=== PATIENT | male | born 1960 | race Caucasian/White ===

== ENCOUNTER 2023-05-21 07:00 | Outpatient (CLI) | payer BC, MEDICARE ==
--- NOTE | 2023-05-21 16:02 | XRAY Report ---
PROCEDURE: Foot 3+V RT INDICATIONS: RIGHT FOOT MUSCLE STRAIN TECHNIQUE: 3 views of the foot were acquired. COMPARISON: None. FINDINGS: Bones: No fractures or dislocations. No suspicious bony lesions. Soft tissues: No suspicious soft tissue calcifications or masses. IMPRESSION: No acute bony abnormality. Reviewed by: Chris Meneses MD on 05/21/2023 4:01 PM [facility] Approved by: Chris Meneses MD on 05/21/2023 4:01 PM [facility] Station ID: [id number]
== END 2023-05-21 23:59 | disposition home or self-care (01) ==
LOC: DI.S 07:00
PROVIDERS: ATTEND Physician Assistant Medical
DX: S96.211A Strain of intrinsic muscle and tendon at ankle and foot level, right foot, initial encounter (principal)

== ENCOUNTER 2023-05-27 08:51 | Outpatient (CLI) | payer BC, MEDICARE ==
--- NOTE | 2023-05-28 08:07 | XRAY Report ---
PROCEDURE: Foot 3 View RT INDICATIONS: RIGHT FOOT PAIN TECHNIQUE: 3 views of the foot were acquired. COMPARISON: X-ray left foot, 05/21/2023. FINDINGS: Bones: No fractures or dislocations. No suspicious bony lesions. Mild osteoarthritic changes are pr esent in ankle and foot. Soft tissues: No suspicious soft tissue calcifications or masses. Severe atherosclerotic calcificati ons. IMPRESSION: 1. No acute bony abnormality. 2. Mild osteoarthritis. 3. Atherosclerosis. Reviewed by: Guillermina Wilson MD on 05/28/2023 8:05 AM PST Approved by: Guillermina Wilson MD on 05/28/2023 8:05 AM PST Station ID: [id number]
== END 2023-05-27 23:59 | disposition home or self-care (01) ==
LOC: DI.WOS 08:51
PROVIDERS: ATTEND Physician Assistant Surgical
DX: M19.071 Primary osteoarthritis, right ankle and foot (principal); I70.208 Unspecified atherosclerosis of native arteries of extremities, other extremity

== ENCOUNTER 2023-07-10 09:02 | Emergency (ER) | payer BC, MEDICARE ==
[2023-07-10 09:14] VITALS: BP 155/99; O2SAT 100
--- NOTE | 2023-07-10 09:17 | ED Physician Documentation ---
PD HPI URI - Stated complaint Stated Complaint: COUGH/CONGESTION - Chief complaint Chief Complaint: Resp - History obtained from History obtained from: Patient - History of Present Illness Timing - onset: How many days ago (4) Timing duration: Days (4) Timing details: Gradual onset, Still present Associated symptoms: Productive cough, Hemoptysis (mild wisps), Dyspnea. No: Fever, Ear pain, Nasal congestion Contributing factors: No: Sick contact, Travel, Immunocompromised, COPD / asthma Similar symptoms before: Has not had sx before Review of Systems Constitutional: denies: Fever, Chills, Myalgias Nose: denies: Rhinorrhea / runny nose, Congestion Throat: reports: Sore throat (from coughing) Respiratory: reports: Dyspnea, Cough. denies: Wheezing PD PAST MEDICAL HISTORY - Past Medical History Past Medical History: Yes Cardiovascular: Hypertension, High cholesterol - Past Surgical History Past Surgical History: Yes - Present Medications Home Medications: Ambulatory Orders Medication Instructions Recorded Confirmed Amoxicillin 500 mg PO TID #15 cap 07/10/23 Benzonatate [Tessalon] 100 mg PO TID PRN #20 cap 07/10/23 Dextroamphetamine/Amphetamine 20 mg PO DAILY 07/10/23 07/10/23 [Adderall 20 mg Tablet] Losartan [Cozaar] 50 mg PO DAILY 07/10/23 07/10/23 Pravastatin [Pravachol] 40 mg PO DAILY 07/10/23 07/10/23 dexAMETHasone [Decadron] 4 mg PO DAILY #5 tablet 07/10/23 guaiFENesin/CODEINE [Robitussin AC] 10 ml PO Q6H PRN #240 ml 07/10/23 - Allergies Allergies/Adverse Reactions: Allergies Allergy/AdvReac Type Severity Reaction Status Date / Time No Known Drug Allergies Allergy Verified 07/10/23 09:13 - Social History Does the pt smoke?: No Smoking Status: Never smoker PD ED PE NORMAL - Vitals Vital signs reviewed: Yes - General General: Alert and oriented X 3, No acute distress, Well developed/nourished - HEENT HEENT: Ears normal, Pharynx benign - Neck Neck: Supple, no meningeal sign, No adenopathy - Cardiac Cardiac: RRR, No murmur - Respiratory Respiratory: No respiratory distress, Clear bilaterally Results - Vitals Vitals: Vital Signs - 24 hr 07/10/23 09:12 Temperature 36.5 C Heart Rate 70 Respiratory 16 Rate Blood Pressure 155/99 H O2 Saturation 100 PD Medical Decision Making - ED course Complexity details: considered differential (pt without general URI symptoms and has had increasing throat/bronchial symptoms with productive cough. Consider viral vs bacterial. Lungs clear and sats are good, so not seeing need for CXR. Viral panel testing woul dnot preclude bacterial component, so did not get that after discussion with pt. ), d/w patient Departure - Departure Disposition: 01 Home, Self Care Clinical Impression: Acute bronchitis Qualifiers: Bronchitis organism: unspecified organism Qualified Code(s): J20.9 - Acute bronchitis, unspecified Condition: Stable Record reviewed to determine appropriate education?: Yes Instructions: ED Upper Resp Infec Abx Tx Prescriptions: Amoxicillin 500 mg PO TID #15 cap dexAMETHasone [Decadron] 4 mg PO DAILY #5 tablet guaiFENesin/CODEINE [Robitussin AC] 10 ml PO Q6H PRN #240 ml PRN Reason: Cough Benzonatate [Tessalon] 100 mg PO TID PRN #20 cap PRN Reason: Cough Comments: There are several viruses going around that will cause a lot of coughing but usually there is the combination of general viral symptoms as well with fever aches, congestion you,'s sore throat in addition to the cough and throat soreness from coughing. It does not sound like you have the general viral type "package" of symptoms but more isolated to the cough and bronchial. This raises the idea of nonviral or bacterial type causes. Comment treatment for the cough be at viral or bacterial, would be some anti- inflammatory as well as medication to help with irritation of the throat and bronchioles. I wrote for benzonatate/Tessalon and also some codeine cough syrups. This is the neck step up since you are her [id number] medicines were not helping. In addition with the consideration for bacterial cause, I would add amoxicillin antibiotic 3 times daily for 5 days. I sent new prescriptions to [facility] in [place]. I would anticipate improvement over the next few days and resolution by 3 to 5 days or so. Forms: PCP List Discharge Date/Time: 07/10/23 09:53
[2023-07-10] MEDS: dexAMETHasone 4 MG TABLET PO STA (09:47)
[2023-07-10] MEDS: AMOXICILLIN 250 MG CAPSULE PO STA (09:48)
[2023-07-10] MEDS: BENZONATATE 100 MG CAPSULE PO STA (09:48)
== END 2023-07-10 09:53 | disposition home or self-care (01) ==
LOC: ED 09:02
DX: J20.9 Acute bronchitis, unspecified (principal); I10 Essential (primary) hypertension
CPT/HCPCS: 99283; 99284; A9270; J8540

== ENCOUNTER 2023-07-14 10:20 | Emergency (ER) | payer BC, MEDICARE ==
--- NOTE | 2023-07-14 11:28 | XRAY Report ---
PROCEDURE: Chest 2V INDICATIONS: cough 1 week TECHNIQUE: 2 views of the chest were acquired. COMPARISON: None. FINDINGS: Surgical changes and devices: None. Lungs and pleura: No pleural effusions or pneumothorax. Lungs are clear. Mediastinum: Mediastinal contours appear normal. Heart size is normal. Bones and chest wall: No suspicious bony lesions. Overlying soft tissues appear unremarkable. IMPRESSION: No acute cardiopulmonary process. Reviewed by: Kelvin Mcgregor MD on 07/14/2023 11:27 AM PDT Approved by: Kelvin Mcgregor MD on 07/14/2023 11:27 AM PDT Station ID: [id number]
--- NOTE | 2023-07-14 11:48 | ED Physician Documentation ---
PD HPI URI - Stated complaint Stated Complaint: SOA/CONGESTION - Chief complaint Chief Complaint: Resp - History obtained from History obtained from: Patient - Additional information Additional information: Pt presenting for cough/congestion for 1 week. Seen 4 days ago - VSS, no testing. Given 5 day course of Amoxicillin, decadron, tessalon, and robitussin AC. Pt states doing a little better but still with some cough and last night felt he had a hard time breathing while laying down. Feels better now. HAs had bronchitis before. No fever. No CP. NO abdominal symptoms or leg swelling. Review of Systems Constitutional: denies: Fever Nose: reports: Congestion Cardiac: denies: Chest pain / pressure Respiratory: reports: Cough. denies: Dyspnea, Hemoptysis GI: denies: Abdominal Pain, Vomiting PD PAST MEDICAL HISTORY - Past Medical History Cardiovascular: Hypertension, High cholesterol - Past Surgical History Past Surgical History: Yes - Present Medications Home Medications: Ambulatory Orders Medication Instructions Recorded Confirmed Amoxicillin 500 mg PO TID #15 cap 07/10/23 07/14/23 Benzonatate [Tessalon] 100 mg PO TID PRN #20 cap 07/10/23 07/14/23 Dextroamphetamine/Amphetamine 20 mg PO DAILY 07/10/23 07/14/23 [Adderall 20 mg Tablet] Losartan [Cozaar] 50 mg PO DAILY 07/10/23 07/14/23 Pravastatin [Pravachol] 40 mg PO DAILY 07/10/23 07/14/23 dexAMETHasone [Decadron] 4 mg PO DAILY #5 tablet 07/10/23 07/14/23 guaiFENesin/CODEINE [Robitussin AC] 10 ml PO Q6H PRN #240 ml 07/10/23 07/14/23 Albuterol Sulf [Ventolin Hfa 1 - 2 puffs INH Q4HR PRN #1 each 07/14/23 Inhaler] Omeprazole Magnesium [Prilosec] 10 mg PO BID 07/14/23 07/14/23 Sodium Chloride [Saline Nasal 1 spray NS Q4HR PRN #44 ml 07/14/23 [place]] - Allergies Allergies/Adverse Reactions: Allergies Allergy/AdvReac Type Severity Reaction Status Date / Time No Known Drug Allergies Allergy Verified 07/14/23 10:36 - Social History Does the pt smoke?: No Smoking Status: Never smoker PD ED PE NORMAL - General General: Alert and oriented X 3, No acute distress, Well developed/nourished - HEENT HEENT: Atraumatic, Moist mucous membranes, Pharynx benign - Neck Neck: Supple, no meningeal sign - Cardiac Cardiac: RRR, Strong equal pulses - Respiratory Respiratory: No respiratory distress, Clear bilaterally - Abdomen Abdomen: Soft, Non tender - Derm Derm: Warm and dry - Neuro Neuro: Normal speech Results - Vitals Vitals: Vital Signs - 24 hr 07/14/23 07/14/23 10:33 11:50 Temperature 36.2 C L Heart Rate 67 68 Respiratory 16 20 Rate Blood Pressure 140/94 H 135/78 H O2 Saturation 96 100 PD Medical Decision Making - ED course Complexity details: reviewed results, d/w patient ED course: Pt with URI symptoms x 1 week. Treated already with antibiotics, steroids and cough medications but still having some cough. VSS. Lungs clear. Chest XR negative for pneumonia. Discussed etiologies including ongoing viral illness. Discussed trial of albuterol for coughing fits as well as saline spray to continue to clear nasal congestion. Do not see indication for another course of antibiotics at this time. Pt counseled on concerning symptoms to return for. Departure - Departure Disposition: 01 Home, Self Care Clinical Impression: Upper respiratory infection, Cough Condition: Stable Instructions: ED Viral Syndrome Prescriptions: Sodium Chloride [Saline Nasal [place]] 1 spray NS Q4HR PRN #44 ml PRN Reason: Nasal Congestion Albuterol Sulf [Ventolin Hfa Inhaler] 1 - 2 puffs INH Q4HR PRN #1 each PRN Reason: Shortness Of Air/Wheezing Comments: Your chest x-ray is clear and does not show any signs of pneumonia. At this time your cough may be just from continued inflammation from your recent infection. Do not see indications for another course of antibiotics. I have sent a prescription for an albuterol inhaler as well as saline nasal spray to [facility] in [place]. Please continue to stay hydrated to loosen any mucus. Return to the ER with any worsening symptoms. Forms: PCP List Discharge Date/Time: 07/14/23 11:51
[2023-07-14 11:51] VITALS: BP 135/78; O2SAT 100
== END 2023-07-14 11:51 | disposition home or self-care (01) ==
LOC: ED 10:20
DX: J06.9 Acute upper respiratory infection, unspecified (principal); I10 Essential (primary) hypertension; E78.00 Pure hypercholesterolemia, unspecified; Z79.899 Other long term (current) drug therapy
CPT/HCPCS: 99283

== ENCOUNTER 2023-12-28 08:37 | Outpatient (CLI) | payer BC, MEDICARE ==
--- NOTE | 2023-12-28 09:24 | Sleep Patient Instructions ---
Sleep Center Visit Summary - Patient Visit Information Reason for Visit: Initial consult for evaluation of sleep disordered breathing and other sleep issues. - Patient Instructions Instructions Attached: Sleep Study, Sleep Study Home Monitor Additional Instructions: You will be completing a sleep study, either an in-lab polysomnography (PSG) or home sleep study (HST). You will follow-up in the sleep care office after the sleep study is completed to hear the results and talk about therapy, if needed. You will be called by our office staff to schedule this appointment, but you may contact us with any questions. - Clinic Information Contact: [facility] [address] [place] [id number] [email or web address] T: [phone]
--- NOTE | 2023-12-28 09:30 | SLEEP CARE CONSULTATION ---
Information from patient questionnaire entered by Maddi Chang. I have reviewed and concur with the information entered by Maddi Chang. This document represents the service I personally performed and the decisions made by me, Tammi Justice ARNP. History of Present Illness Service Date and Time: 12/28/2023 0837 Reason for Visit: New patient, Previously diagnosed sleep apnea Chief Complaint: reports: Fatigue Date of Onset: 2 + years Usual bedtime: 8 - 9 Time it takes to fall asleep: 15 - 30 Snores at night: Yes Observed to quit breathing while asleep: Yes Sleeps alone due to snoring: No Number of times waking at night: 1 or 2 times Reasons for waking at night: reports: Bathroom. denies: Choking, Gasping for air Toss, Turn, or Twitch while sleeping: Yes Recalls having dreams: Yes Usually gets out of bed at: 6 - 7 Feels refreshed in the morning: No Morning headache: No Sleepy or fatigued during the day: Yes (varies) Ever fallen asleep while driving: No Takes day naps: No Dreams during day naps: No (N/A) Prior sleep studies: Yes Year and Where: [facility] 2 years ago Additional HPI information: I had the pleasure of seeing PAULINE MAYES today regarding the possibility of him having a sleep disorder. His current complaint is fatigue. He did have a sleep study that diagnosed him with moderate sleep apnea about 2 years ago in [place]. He tried a CPAP for a single night but it was "claustrophobic" for him. He returned the CPAP and shortly after moved to [place]. He returns to establish care to see if there are other options for treatment or to retry a CPAP if needed. He continues to have daytime fatigue, unrefreshed sleep, snoring and observed pauses of breathing. 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 Patient is and lives in [place]. Have you smoked in the past 12 months: No Alcohol use: Yes Alcohol amount and frequency: 1 - 2 beer daily Caffeine use: Yes Caffeine amount and frequency: 1 Redbull daily Family History Family history of sleep disordered breathing: No Family Hx Sleep Apnea: Father: Snoring, Sibling: Snoring Allergies and Home Medications Known drug allergies: No Drug allergies reviewed: Yes Home medication list reviewed: Yes (as listed) Allergy and home medication list: Allergies No Known Drug Allergies Allergy (Verified 12/28/23 09:18) Home Medications Dextroamphetamine/Amphetamine [Adderall 20 mg Tablet] 20 mg PO DAILY 07/10/23 [History] Losartan [Cozaar] 50 mg PO DAILY 07/10/23 [History] Pravastatin [Pravachol] 40 mg PO DAILY 07/10/23 [History] Omeprazole Magnesium [Prilosec] 10 mg PO BID 07/14/23 [History] Aspirin See Rx Instructions .ROUTE .COMPLEX 12/28/23 [History] Review of Systems Cardiovascular: reports: high blood pressure Respiratory: reports: sputum production Urinary: reports: frequency Psychiatric: reports: Attention Deficit Hyperactivity Ear/Nose/Throat: reports: tonsillectomy Musculoskeletal: reports: joint pain (/stiffness), muscle pain or cramping Immunologic: reports: sneezing (/runny nose) Physical Exam Vital signs obtained and entered by: Tammi Kirkland NP Blood Pressure: 157/89 (pt states usually elevated in drs office) Cuff size: long (left arm) Heart Rate: 53 O2 Saturation: 98 Height: 5 ft 5 in Weight: 168 lb 6.4 oz Body Mass Index: 28.0 BMI Classification: Overweight Neck circumference: 15.5 Nostrils: patent to airflow Mouth and throat: narrow oropharynx Soft palate: long Hard palate: normal Uvula: normal Uvula visualization: 50% Mallampati Class II Tongue: normal in size Tonsils: absent bilaterally Neck: normal w/o lymphadenopathy or thyromegaly Heart: regular rate and rhythm Lungs: clear bilaterally Impression and Plan 1. Suspected Obstructive Sleep Apnea-Hypopnea Syndrome, as previously diagnosed and as suggested by a history of loud and irregular snoring, observed cessation of breath while asleep, frequent awakening during the night, unrefreshed sleep and cognitive impairment. I recommend proceeding to polysomnography to confirm the diagnosis and to assess severity. If the patient has significant sleep dis ordered breathing, a manual CPAP titration study will also be performed to find the optimal treatment pressure. I informed the patient of what the sleep studies involve and after some discussion, obtained agreement to proceed. The pathophysiology of obstructive sleep apnea-hypopnea syndrome was discussed with the patient and health risks of cardiovascular and cerebrovascular disease if not treated. Risks of drowsy driving discussed in detail and patient advised to avoid long distance driving and to kidney puller at the first sign of drowsiness. Patient agreed to plan. * Schedule polysomnography +- manual CPAP titration study and return in 1-2 weeks after the study to discuss result and initiate therapy. * Avoid long distance driving or driving when feeling sleepy. * Avoid alcohol, sedative and muscle relaxant around bedtime. * Attempt to lose weight. * Review instructions provided by trained office staff on how to prepare for the sleep study. * Return for follow-up after sleep study completed. Counseling Topics: Weight loss health impact Plan: PSG and followup Visit Type: In Office Time Spent with Patient (minutes): 30 Provider Statement: I spent 100% of the Face to Face Visit with the patient with greater than 50% spent counseling the patient and coordination of care.
[2023-12-28 09:39] VITALS: BP 157/89; O2SAT 98
== END 2023-12-28 08:38 | disposition home or self-care (01) ==
LOC: SC 08:37
PROVIDERS: ATTEND Nurse Practitioner Family
DX: G47.33 Obstructive sleep apnea (adult) (pediatric) (principal); E66.3 Overweight; Z68.28 Body mass index [BMI] 28.0-28.9, adult
CPT/HCPCS: 99203; 99212